=== PATIENT | male | born 1960 | race Caucasian/White ===

== ENCOUNTER 2024-09-21 13:59 | Outpatient (REF) | payer BC, SELFPAY ==
--- NOTE | ~2024-09-21 | US_ITS ---
Procedure: Endovascular ablation of the left greater saphenous vein with VenaSeal HISTORY: Varicose veins INDICATIONS: Symptomatically varicose veins bilateral lower extremity. Symptoms include aching, itching and throbbing (C2). PROCEDURE/FINDINGS: Informed consent was obtained following a discussion of the risks and benefits of the procedure with the patient. The patient was placed supine on the ultrasound procedure table. Preliminary ultrasound demonstrates dilated refluxing left greater saphenous vein. A site was marked on the left medial leg . The left leg was sterilely prepped and draped. Following the administration of 1% lidocaine for local anesthesia, the greater saphenous vein was accessed with a 21-gauge micropuncture needle under direct ultrasound guidance. The needle was exchanged for the transitional dilator over a 0.018 guidewire. A 0.035 guidewire was then advanced to the saphenofemoral junction. The VenaSeal sheath was then inserted over the wire and positioned 10 cm from the saphenofemoral junction. VenaSeal glue was then delivered along the length of the greater saphenous vein while retracting the catheter with compression at the saphenofemoral junction to prevent glue from traveling forward. The delivery device was removed and hemostasis was achieved with manual compression. Postprocedure ultrasound demonstrates successful occlusion of the treated veins with widely patent and compressible saphenofemoral junction. Patient tolerated the procedure well without immediate complication. US/US venaseal vein closure IMPRESSION: Successful VenaSeal ablation of the left greater saphenous vein. Follow-up ultrasound in 5-7 days Electronically signed by: Benito Riggs MD 09/27/2024 09:09 AM EDT Workstation: [id number]
--- OUTSIDE RECORDS SUMMARY | 2024-09-21 15:18 | XMS_ITS | Data Portability ---
Author Organization [place] [facility],, AMINTA GUEVARA MD Address [address] [address] Assessment No assessment recorded. Plan of Treatment Reminders Order Date Submit Date Provider Last Modified By Organization Details Last Modified Time Details Appointments None record ed. Lab None record ed. Referral None record ed. Procedures None record ed. Surgeries None record ed. Imaging None record ed. Medication Orders None record ed. Patient TargetsNo targets recorded. Patient InstructionsNo instructions recorded. Reason for Referral None Reported. Medical Equipment None Reported. Allergies No known drug allergies Medications Name Sig Start Date Stop Date Status Note LastModified by Organization Details LastModified Time silver sulfadiazine 1 % topical cream APPLY TO AFFECTED AREA TWICE A DAY active Not Available Not Available No t Available sertraline 100 mg tablet TAKE ONE TABLET BY MOUTH EVERY DAY active Not Available Not Available No t Available sulfamethoxa zole 800 mg-trimethop rim 160 mg tablet TAKE ONE TABLET BY MOUTH TWICE A DAY FOR 7 DAYS active Not Available Not Available No t Available peg-electrol yte solution 420 gram oral solution FOLLOW INSTRUCTION S GIVEN BY OFFICE active Not Available Not Available No t Available cefadroxil 500 mg capsule TAKE 2 CAPSULES BY MOUTH EVERY 12 HOURS FOR 7 DAYS active Not Available Not Available N ot Available cephalexin 500 mg capsule TAKE ONE CAPSULE BY MOUTH FOUR TIMES A DAY FOR 7 DAYS active Not Available Not Available N ot Available ibuprofen 600 mg tablet TAKE ONE TABLET BY MOUTH FOUR TIMES A DAY NEEDED FOR SEVERE PAIN, TAKE WITH FOOD OR MILK active Not Available Not Available No t Available albuterol sulfate HFA 90 mcg/actuatio n aerosol inhaler INHALE TWO PUFFS BY MOUTH EVERY 4 TO 6 HOURS NEEDED active Not Available Not Available No t Available sodium fluoride 1.1 % dental paste APPLY THIN RIBBON TO TOOTHBRUSH AND BRUSH FOR 2 MINUTES AT BEDTIME. DO NOT EAT, DRINK OR RINSE FOR 30 MINUTES active Not Available Not Available N ot Available Breo Ellipta 100 mcg-25 mcg/dose powder for inhalation INHALE ONE PUFF BY MOUTH EVERY DAY (TAKE AT THE SAME TIME EACH DAY) active Not Available Not Available No t Available Vitals None Recorded Social History None recorded. Functional Status None recorded. Mental Status None recorded. Family History Nothing Reported. Medical History No medical history recorded. Gynecological HistoryNo gynecological history recorded. Obstetrics History GPAL:G 0 P 0 0 0 0 Immunizations Vaccine Type Date Status Note Provider Nam e and Address Organization Details Recorded Time COVID-19, mRNA, LNP-S, PF, 100 mcg/0.5mL dose or 50 mcg/0.25mL dose 04/10/2020 completed Aminta Guevara MD [address], [place], [address], [place] [facility], 04/10/2020 09:43:22 COVID-19, mRNA, LNP-S, PF, 100 mcg/0.5mL dose or 50 mcg/0.25mL dose 05/08/2020 completed Aminta Guevara MD [address], [place], [address], [place] [facility], 05/08/2020 09:33:10 Past Encounters Encounter ID Performer Location Encounter Start Date Encounter Closed Date Diagnosis/Indication Diagnosis SNOMED-CT Code Diagnosis ICD10 Code Diagnosis Note [id number] MD AMINTA Rojas MD [address] [place] [address] 04/10/2020 09:17:03 04/10/2020 10:23:25 Administration of viral vaccine [id number] Z23 [id number] MD AMINTA Rojas MD [address] [place] [address] 05/08/2020 08:35:55 05/08/2020 11:46:00 Administration of viral vaccine [id number] Z23 Health Concerns Section Related Observation LastModified by Organization Detai ls LastModified Time None Recorded Concern Status LastModified by Organization Details LastModified Time None Recorded Advance Directives Directive None Recorded Payers Insurance Date Sequence Insurance Name Policy Number Policy [place] Covered Member ID [place] Member ID Guarantor Name 05/05/2020 1 [employer] [place] [facility] ([place]) [id number] Chaim Joy [id number] Chaim Joy OBGyn Episode No OBEpisode recorded.
== END 2024-09-21 14:00 | disposition home or self-care (01) ==
LOC: HO.US 13:59
PROVIDERS: Visit Provider Student in an Organized Health Care Education/Training Program
DX: I87.2 Venous insufficiency (chronic) (peripheral) (principal); I83.893 Varicose veins of bilateral lower extremities with other complications
CPT/HCPCS: 36482

== ENCOUNTER → 2024-09-21 14:03 | Outpatient (BNV) | payer BC, SELFPAY | DX: I83.12 Varicose veins of left lower extremity with inflammation (principal) | CPT/HCPCS: 36482 ==

== ENCOUNTER 2024-09-29 07:53 | Outpatient (REF) | payer BC, SELFPAY ==
--- NOTE | ~2024-09-29 | US_ITS ---
EXAMINATION: TRIPLEX SCANNING OF LEFT LOWER EXTREMITY; SUPERFICIAL ULTRASOUND WITH DOPPLER OF LEFT LOWER EXTREMITY CLINICAL INFORMATION: Status post Venaseal of left greater saphenous vein, and left superficial saphenous vein. COMPARISON: preprocedure studies. TECHNIQUE: Color flow triplex imaging and compression Doppler were performed as well as superficial ultrasound with Doppler. FINDINGS: LEFT LOWER EXTREMITY DEEP VENOUS SYSTEM: Respiratory variation, normal compression and augmented flow are noted throughout the lower extremity. The visualized common femoral vein, femoral vein, profunda femoral vein, popliteal vein and the calf veins show no evidence of deep venous thrombosis. There is no evidence of Enriquez's cyst. SUPERFICIAL VENOUS SYSTEM: The great saphenous vein is occluded from the access site approximately 2 cm above the knee. There is no extension of thrombus into the deep system. The superficial saphenous vein is occluded approximately 1.93 cm from the popliteal junction. There is no extension of thrombus into the deep system. US/US venous duplex LE LT IMPRESSION: 1. No evidence of DVT. 2. Excellent appearance status post ablation of the left greater saphenous vein distally, and superficial saphenous vein. No extension of thrombus into the deep system. Electronically signed by: Deangelo Garza MD 09/30/2024 08:37 AM EDT
== END 2024-09-29 07:54 | disposition home or self-care (01) ==
LOC: HO.US 07:53
DX: I87.2 Venous insufficiency (chronic) (peripheral) (principal)
CPT/HCPCS: 93971

== ENCOUNTER → 2024-09-29 07:57 | Outpatient (BNV) | payer BC, SELFPAY | PROVIDERS: Visit Provider Radiology Diagnostic Radiology | DX: I83.812 Varicose veins of left lower extremity with pain (principal) | CPT/HCPCS: 93971 ==